=== PATIENT | female | born 1985 | race Caucasian/White ===

== ENCOUNTER 2017-06-12 15:41 | Emergency (ER) | payer MEDICAID ==
[~2017-06-12 15:41] MED LIST: PYRI200T4 PO; [UNRECOGNIZED DRUG - REMARK]
[2017-06-12 15:57] VITALS: BP 152/89; PULSE 92; RESP 19; TEMP 98.4; O2SAT 100
[2017-06-12 16:50] LABS: BILIRUBIN, URINE NEG (NEG); BLOOD, URINE NEG (NEG); GLUCOSE,URINE NEG (NEG); KETONE, URINE NEG (NEG); NITRITE,URINE NEG (NEG); SQUAMOUS EPITHELIAL CELL URINE 1 /hpf (0-5); URINE COLOR LIGHT-YELLOW (YELLW/STRAW); URINE LEUKOCYTE ESTERASE MOD (NEG)
[2017-06-12 16:51] LABS: AUTOMATED NEUTROPHIL # 6.6 TH/MM3 (1.8-7.7); BASOPHIL # 0.1 TH/MM3 (0-0.2); BASOPHIL % 0.5 % (0.0-2.0); EOSINOPHIL # 0.5 TH/MM3 (0-0.4); EOSINOPHIL % 4.5 % (0.0-4.0); HEMATOCRIT 42.2 % (35.0-46.0); HEMOGLOBIN 14.3 GM/DL (11.6-15.3); LYMPH % 33.1 % (9.0-44.0); LYMPHOCYTE # 3.9 TH/MM3 (1.0-4.8); MEAN CELL VOLUME 87.7 FL (80.0-100.0); MEAN CORPUSCULAR HEMOGLOBIN 29.8 PG (27.0-34.0); MEAN PLATELET VOLUME 7.5 FL (7.0-11.0); MONO % 5.9 % (0.0-8.0); MONOCYTE # 0.7 TH/MM3 (0-0.9); PLATELET COUNT 372 TH/MM3 (150-450); RED BLOOD COUNT 4.81 MIL/MM3 (4.00-5.30); RED CELL DISTRIBUTION WIDTH 14.5 % (11.6-17.2); WHITE BLOOD COUNT 11.8 TH/MM3 (4.0-11.0)
[2017-06-12 17:14] LABS: BICARBONATE 27.1 MEQ/L (21.0-32.0); CALCIUM 9.8 MG/DL (8.5-10.1); CREATININE 0.73 MG/DL (0.50-1.00)
[2017-06-12] MEDS ORDERED: DICY10 PO (18:40)
[2017-06-12 18:45] VITALS: BP 140/79; PULSE 99; RESP 18; TEMP 98.5; O2SAT 99
--- NOTE | 2017-06-12 19:06 | PD ---
HPI Chief Complaint: Abdominal Pain Time Seen by Provider: 19:02 Travel History International Travel<30 days: No Contact w/Intl Traveler<30days: No Traveled to known affect area: No History of Present Illness HPI The patient is 32 year old female who presents to the [facility] emergency department with a history of left lower quadrant abdominal pain that has been ongoing for the last few weeks. She reports that 3 weeks ago she was seen at at [facility] for abdominal pain in the upper abdomen and left lower quadrant of the abdomen. She upper abdominal burning resolved. However the llq abdominal pain. the pain is similar to when she had a fallopian tube rupture at 15-16 years of age- s/p laparoscopy. She reports that she believes that the fallopian tube rupture was related to complications from chlamydia diagnosis a year prior. She has genital herpes lesions that broke out 4 days ago. She was first dx 10 years ago. Her last outbreak was 10 years ago. She reports that she is monogamous and is currently for the last 10 years. She reports having nausea without vomiting. She denies having any diarrhea. On review of systems otherwise, she denies having any recent fevers, cough or congestion, neck pain, chest pain, shortness of breath, or neurologic symptoms. The patient reports that since having the genital herpes outbreak she has dysuria with urination, however no urinary frequency or urgency. LMP: 3 years ago. She has a history of irregular menstrual cycles related to polycystic ovarian syndrome. [facility] Past Medical History Narrative Medical The patient's past medical history is significant for mild asthma, bipolar disorder, polycystic ovarian syndrome. Asthma: Yes Autoimmune Disease: No Blood Disorders: No Bipolar Disorder: Yes Anxiety: No Depression: No Cardiovascular Problems: No Diminished Hearing: No Gastrointestinal Disorders: No Genitourinary: No Musculoskeletal: No Neurologic: Yes Respiratory: No Immunizations Current: No Seizures: Yes Sickle Cell Disease: No Tetanus Vaccination: Unknown Influenza Vaccination: No ?: Not : 3 Para: 2 Miscarriage: 0 : 1 Past Surgical History Narrative Surgical The patient's past surgical history is significant for tonsil and adenoidectomy , endoscopy, , laparoscopy. Abdominal Surgery: Yes (BURST FALLOPIAN TUBE, LAP SURGERY) Appendectomy: Yes Gynecologic Surgery: Yes (, LAPORSCOSPY, T&A, ENDOSCOPY) Tonsillectomy: Yes Other Surgery: Yes Social History Alcohol Use: Yes (OCC) Tobacco Use: No Substance Use: No Allergies-Medications (Allergen,Severity, Reaction): Coded Allergies: No Known Allergies (Verified Allergy, Unknown, 06/12/17) Reported Meds & Prescriptions Reported Meds & Active Scripts Active Naprosyn (Naproxen) 500 Mg Tab 500 Mg PO BID PRN Valtrex (Valacyclovir HCl) 500 Mg Tab 500 Mg PO BID 3 Days Reported Bentyl (Dicyclomine HCl) 10 Mg Cap 10 Mg PO TID PRN Review of Systems Except as stated in HPI: all other systems reviewed are Neg General / Constitutional: No: Fever Eyes: No: Visual changes HENT: No: Headaches Cardiovascular: No: Chest Pain or Discomfort Respiratory: No: Shortness of Breath Gastrointestinal: Positive: Nausea, Abdominal Pain, No: Vomiting, Diarrhea, Changes in Bowel Habits Genitourinary: Positive: Pelvic Pain, Other (Genital lesions), No: Dysuria Musculoskeletal: No: Pain Skin: No Rash Neurologic: Positive: Weakness (fatigue), No: Focal Abnormalities, Change in Mentation, Slurred Speech, Sensory Disturbance Psychiatric: No: Depression Endocrine: No: Polydipsia Hematologic/Lymphatic: No: Easy Bruising Physical Exam Narrative General: The patient is a well-developed well-nourished female in no acute distress. Head and Neck exam: Head is normocephalic atraumatic. Eyes: EOMI, pupils are equal round and reactive to light. Nose: Midline septum with pink mucous membranes Mouth: Dentition unremarkable. Moist mucus membranes. Posterior oropharynx is not erythematous. No tonsillar hypertrophy. Uvula midline. Airway patent. Neck: No palpable lymphadenopathy. No nuchal rigidity. No thyromegaly. Cardiovascular: Regular rate and rhythm without murmurs, gallops, or rubs. Lungs: Clear to auscultation bilaterally. No wheezes, rhonchi, or rales. Abdomen: Soft, with reported left lower quadrant tenderness on palpation. No other tenderness on palpation of the other quadrants of the abdomen. Normal bowel sounds are audible. No tenderness on palpation of McBurney's point. Negative Nguyen sign. No guarding, rebound, or rigidity. Extremities: No clubbing, cyanosis, or edema. 2+ pulses in all 4 extremities. No calf tenderness on palpation. Back: No costovertebral angle tenderness to palpation. Neurologic Exam: Grossly nonfocal. Skin Exam: No rash noted. Intact skin that is warm and dry. Gynecologic exam: The patient was placed in the dorsal lithotomy position. Her external genitalia were examined. She had superficial areas of small ulceration consistent with herpes labialis most prominent on the left labia minora. She has 1 cm left inguinal lymphadenopathy palpated. The speculum was placed into her vagina and the cervix was identified. She had a physiologic appearing clear white discharge. No cervical friability. On Bimanual exam: she has no cervical motion tenderness. No adnexal tenderness or prominence noted on palpation. No uterine tenderness or enlargement noted on palpation. Data Data Last Documented VS Vital Signs Date Time Temp Pulse Resp B/P (MAP) Pulse Ox O2 Delivery O2 Flow Rate FiO2 06/12/17 18:45 98.5 99 18 140/79 (99) 99 Room Air Orders Orders Basic Metabolic Panel (Bmp) (06/12/17 16:00) Complete Blood Count With Diff (06/12/17 16:00) Urinalysis - C+S If Indicated (06/12/17 16:00) Ed Urine Pregnancytest Poc (06/12/17 16:00) Gc And Chlamydia Pcr (06/12/17 16:00) Thyroid Stimulating Hormone (06/12/17 19:13) Sodium Chlor 0.9% 1000 Ml Inj (Ns 1000 M (06/12/17 19:15) Ondansetron Inj (Zofran Inj) (06/12/17 19:15) Ketorolac Inj (Toradol Inj) (06/12/17 19:15) Wet Prep Profile (06/12/17 19:15) Valacyclovir (Valtrex) (06/12/17 19:30) Us Pelvis Comp W Transvaginal (06/12/17 19:13) Acetamin-Hydrocod 325-5 Mg ([place] 5-325 (06/12/17 21:15) Labs Laboratory Tests Test 06/12/17 16:24 06/12/17 16:29 Urine Color LIGHT-YELLOW Urine Turbidity CLEAR Urine pH 5.0 Urine Specific [place] 1.006 Urine Protein NEG mg/dL Urine Glucose (UA) NEG mg/dL Urine Ketones NEG mg/dL Urine Occult Blood NEG Urine Nitrite NEG Urine Bilirubin NEG Urine Urobilinogen LESS THAN 2.0 MG/DL Urine Leukocyte Esterase MOD Urine RBC 1 /hpf Urine WBC 5 /hpf Urine Squamous Epithelial Cells 1 /hpf Microscopic Urinalysis Comment CULT NOT INDICATED Chlamydia trachomatis DNA (PCR) NOT DETECTED Neisseria gonorrhoeae DNA (PCR) NOT DETECTED White Blood Count 11.8 TH/MM3 Red Blood Count 4.81 MIL/MM3 Hemoglobin 14.3 GM/DL Hematocrit 42.2 % Mean Corpuscular Volume 87.7 FL Mean Corpuscular Hemoglobin 29.8 PG Mean Corpuscular Hemoglobin Concent 34.0 % Red Cell Distribution Width 14.5 % Platelet Count 372 TH/MM3 Mean Platelet Volume 7.5 FL Neutrophils (%) (Auto) 56.0 % Lymphocytes (%) (Auto) 33.1 % Monocytes (%) (Auto) 5.9 % Eosinophils (%) (Auto) 4.5 % Basophils (%) (Auto) 0.5 % Neutrophils # (Auto) 6.6 TH/MM3 Lymphocytes # (Auto) 3.9 TH/MM3 Monocytes # (Auto) 0.7 TH/MM3 Eosinophils # (Auto) 0.5 TH/MM3 Basophils # (Auto) 0.1 TH/MM3 CBC Comment DIFF FINAL Differential Comment Blood Urea Nitrogen 13 MG/DL Creatinine 0.73 MG/DL Random Glucose 96 MG/DL Calcium Level 9.8 MG/DL Sodium Level 137 MEQ/L Potassium Level 4.1 MEQ/L Chloride Level 102 MEQ/L Carbon Dioxide Level 27.1 MEQ/L Anion Gap 8 MEQ/L Estimat Glomerular Filtration Rate 92 ML/MIN Thyroid Stimulating Hormone 3rd Gen 1.580 uIU/ML MDM Medical Decision Making Medical Screen Exam Complete: Yes Emergency Medical Condition: Yes Medical Record Reviewed: Yes Interpretation(s) Last Impressions Pelvis Ultrasound 06/12/171912 Signed Impressions: Service Date/Time: Monday, June 12, 2017 19:55 - CONCLUSION: 1. Numerous small bilateral ovarian cysts. Uterus unremarkable. No free fluid. John Bello MD Differential Diagnosis Ovarian torsion, versus PID, versus pelvic pain from polycystic ovarian syndrome Narrative Course During the course of the patient's emergency department visit, the patient's history, examination, and differential diagnosis were reviewed with the patient. The patient was placed on a paper testing supervisor with oximetry and frequent blood pressure monitoring. The patient had IV access obtained and blood work sent for analysis. Bedside test is negative. The patient was initially provided normal saline 1 L IV fluid bolus, Zofran 4 mg IV, Toradol 15 mg IV. Patient reported continued pain and was given Lortab 5 mg p.o. 1. The patient's laboratory studies were reviewed and remarkable for white count of 11.8, hemoglobin 14.3, platelets 372 with 4.5 eosinophils, chemistry is unremarkable, TSH 1.58, urinalysis unremarkable, GC and Chlamydia are negative. Radiology studies were reviewed and remarkable for an ultrasound reveals bilateral ovarian cysts that are numerous, no free fluid or other acute abnormality. No ovarian torsion. The patient is resting comfortably and feels better, is alert and in no distress. The patient's results and examination findings were discussed with the patient. The repeat examination is unremarkable and benign. The history, exam, diagnostic testing, and current condition do not suggest any significant pathology to warrant further testing, continued ED treatment, admission, or surgical evaluation at this point. The vital signs have been stable. The patient does not have uncontrollable pain, intractable vomiting, or other significant symptoms. The patient's condition is stable and appropriate for discharge. The patient will pursue further outpatient evaluation with a primary care physician or other designated or consulting physician as indicated in the discharge instructions. The patient expressed understanding and was agreeable with this plan. Diagnosis Primary Impression: Herpes labialis Additional Impression: Polycystic ovarian syndrome Referrals: Radha Spears MD 1 week [facility] Patient Instructions: General Instructions, Genital Herpes Simplex (ED), Polycystic Ovarian Syndrome (ED) Med/Other Pt SpecificInfo: Prescription(s) given Scripts Naproxen (Naprosyn) 500 Mg Tab 500 MG PO BID Y for PAIN GREATER THAN 5, #10 TAB 0 Refills Prov: Pily Gorman MD 06/12/17 Valacyclovir (Valtrex) 500 Mg Tab 500 MG PO BID for Mgmt Viral Infection for 3 Days, #6 TAB 0 Refills Prov: Pily Gorman MD 06/12/17 Disposition: 01 DISCHARGE HOME Condition: Stable Pily Gorman MD Jun 12, 2017 19:06
[2017-06-12] MEDS ORDERED: SODIUM CHLOR 0.9% 1000 ML INJ 1,000 ML IV ONE (19:15)
[2017-06-12] MEDS ORDERED: ONDANSETRON HCL 4 MG/2 ML VIAL IV ONE (19:15)
[2017-06-12] MEDS ORDERED: KETOROLAC TROMETHAMINE 30 MG/ML (IVP) VIAL IV PUSH ONE (19:15)
[2017-06-12] MEDS ORDERED: valACYclovir HCL 500 MG TAB PO ONE (19:30)
[2017-06-12] MEDS ORDERED: NAPR500 PO (20:39)
[2017-06-12] MEDS ORDERED: VALT500T PO (20:39)
--- NOTE | 2017-06-12 21:14 | RADRPT ---
EXAM DATE/TIME: 06/12/2017 19:55 [facility] COMPARISON: No previous studies available for comparison. INDICATIONS : Pelvic pain. MEDICAL HISTORY : . . Miscarriage. Ruptured fallopian tube. PCOS. Seizures. Asthma. Bipolar disord er. SURGICAL HISTORY : Appendectomy. Tonsillectomy. Laproscopic salpingectomy. Knee surgery. ENCOUNTER: Initial ACUITY: 3 weeks PAIN SCORE: 6/10 LOCATION: Bilateral pelvis MEASUREMENTS: UTERUS: 8.0 x 6.4 x 4.8 cm ENDOMETRIAL STRIPE: 8 mm RIGHT OVARY: 3.3 x 3.2 x 2.1 cm LEFT OVARY: 3.2 x 3.1 x 2.3 cm FINDINGS: Multiple tiny nabothian cysts. Uterus otherwise unremarkable. Numerous small bilateral ovarian cysts. No free fluid. CONCLUSION: 1. Numerous small bilateral ovarian cysts. Uterus unremarkable. No free fluid. John Bello MD on June 12, 2017 at 21:10 Board Certified Radiologist. This report was verified electronically.
[2017-06-12] MEDS ORDERED: ACETAMINOPHEN/HYDROcodone 325 MG/5 MG TAB PO ONE (21:15)
[2017-06-12 22:20] VITALS: BP 124/70
== END 2017-06-12 22:35 | disposition home or self-care (01) ==
LOC: NED 15:41 → NEPC 22:35
DX: B00.1 Herpesviral vesicular dermatitis (principal); E28.2 Polycystic ovarian syndrome; J45.909 Unspecified asthma, uncomplicated; F31.9 Bipolar disorder, unspecified; R56.9 Unspecified convulsions; Z79.899 Other long term (current) drug therapy
CPT/HCPCS: 76830; 76856; 80048; 81001; 84443; 84703; 85025; 87210; 87255; 87491; 87591; 96361; 96374; 96375; 99284; J1885; J2405; J7030